=== PATIENT | male | born 1985 | race Hispanic/Latino ===

== ENCOUNTER 2017-09-26 21:35 | Emergency (ER) | payer SELFPAY ==
[2017-09-26] MEDS ORDERED: GUAIFENESIN SUGAR-FREE 100 MG/5 ML UDCUP ONE (22:41)
[2017-09-26] MEDS ORDERED: ONDANSETRON ODT 4 MG TAB ONE (22:41)
[2017-09-26 23:30] LABS: RAPID GROUP A STREP NEGATIVE (NEGATIVE)
[2017-09-27] MEDS ORDERED: IBUPROFEN 100 MG/5 ML SUSP UDCUP ONE (01:11)
== END 2017-09-27 00:30 | disposition home or self-care (01) ==
LOC: EDH 21:35
DX: J06.9 Acute upper respiratory infection, unspecified (principal); R11.10 Vomiting, unspecified
CPT/HCPCS: 71045; 87804; 87880

== ENCOUNTER → 2024-04-15 | Emergency (ER) | payer SELFPAY ==
[~2024-04-15] VITALS: Ht 175.3 cm; Wt 88.5 kg
[~2024-04-15] MED LIST: AMOX1TAB16 PO; BENZ-39 PO; METH4TAB3 PO; ONDA-243 PO
[2024-04-15 21:12] LABS: SARS-CoV-2, RNA, NAAT NEGATIVE SARS CoV-2 (NEGATIVE)
[2024-04-15 21:20] LABS: INFLUENZA TYPE A Negative For Type A (NEGATIVE); INFLUENZA TYPE B Negative For Type B (NEGATIVE)
[2024-04-15 21:22] LABS: RAPID GROUP A STREP positive (NEGATIVE)
[2024-04-15 21:41] VITALS: BP 147/74; PULSE 102; RESP 20; O2SAT 98
[2024-04-15] MEDS: cefTRIAXone 1G VIAL IM ONE (22:13)
[2024-04-15] MEDS: dexaMETHasone SOD PHOSPHATE 4 MG/ML 1ML VIAL IM ONE (22:13)
== END ==
LOC: EDH 20:29
DX: J02.0 Streptococcal pharyngitis (principal); J20.9 Acute bronchitis, unspecified; Z20.822 Contact with and (suspected) exposure to COVID-19; Z86.16 Personal history of COVID-19
CPT/HCPCS: 99284; 71045; 87635; 87880; 87804 ×2; 96372 ×2; J1100; J0696